=== PATIENT | male | born 1950 | race Caucasian/White ===

== ENCOUNTER 2016-06-03 04:40 | Emergency (ER) | payer MEDICARE, OTHER ==
--- NOTE | 2016-06-03 19:12 | ER ---
ADMIT: 06/03/2016 RM/LOC: ER [facility] MR#: [id number] [facility] [id number] [address]OVE [address] [place] [address] Emergency Room Report SEX: M AGE: 65 : 1950 DATE: 06/03/2016 The patient is a 65-year-old male with history of paroxysmal atrial fib status post two ablations, most recently in December 2015, hypertension, previously on metoprolol, states he has had palpitations, tachycardia, and escalating left chest discomfort without nausea, diaphoresis, or shortness of breath for the past 20 hours. Denies any excessive caffeine or alcohol. Exam is remarkable for nontoxic, afebrile male with heart rate of 105. EKG shows sinus tachycardia without ST-T or Q-wave change. QTC of 476 milliseconds, CTA chest negative, lactic 1.0, CRP 1.26, lipase 392, troponin less than 0.015. BNP 96. The patient's heart rate trended down to mid 80s, discharged with metoprolol-XL 50 mg one-half tablet b.i.d. p.r.n., heart rate greater than 100. Discussed the case with Dr. Booker, who agrees followup with Michel Beltran this week. Acosta Hutson MD/ scottl JOB #: [id number] CC: Acosta Hutson MD, Attending Physician Michel Beltran MD, Family Physician Michel Beltran MD
== END 2016-06-03 07:00 | disposition home or self-care (01) ==
LOC: ER 04:40
DX: R00.2 Palpitations (principal); E78.5 Hyperlipidemia, unspecified; E11.9 Type 2 diabetes mellitus without complications; Z88.8 Allergy status to other drugs, medicaments and biological substances; Z79.899 Other long term (current) drug therapy